=== PATIENT | female | born 1990 ===

== ENCOUNTER 2017-02-05 11:23 | Day surgery (SDC) | payer SELFPAY ==
[2017-01-24 12:10] VITALS: BMI 20.5
--- NOTE | 2017-02-05 12:41 | CP.SDSHP ---
Same Day Surgery H & P - History Proposed Procedure: EGD w/stent Pre-Op Diagnosis: Esophageal stenosis - Previous Medical/Surgical History Previous Surgical History: EGD w/dilation. Jtube - Allergies Allergies: Allergies No Known Allergies Allergy (Verified 02/05/17 12:06) - Physical Exam General Appearance: nl Mental Status: Alert & Oriented x3 Neuro: WNL Heart: WNL Lungs: WNL GI: WNL - {Optional Preform as Required} Abdomen: WNL - Impression Impression: esophageal stenosis Pt. Evaluated Today:Candidate for Anesthesia & Procedure: Yes - Date & Time Date: 02/05/17 Time: 12:41 Short Stay Discharge - Short Stay Discharge Admitting Diagnosis/Reason for Visit: ESOPHAGEAL STENOSIS Disposition: HOME/ ROUTINE
[2017-02-05 12:49] VITALS: RESP 16; O2SAT 100
[2017-02-05 14:11] VITALS: TEMP 97
--- NOTE | 2017-02-05 14:14 | RAD ---
HISTORY: esophageal stent placement COMPARISON: None available. TECHNIQUE: Chest, one view. FINDINGS: LUNGS: Superior most lung apices excluded from view. No focal consolidation. Please note that chest x-ray has limited sensitivity for the detection of pulmonary masses. PLEURA: No significant pleural effusion identified. No definite pneumothorax . CARDIOVASCULAR: The cardiomediastinal silhouette appears within normal limits of size. OSSEOUS STRUCTURES: No acute osseous abnormality identified. VISUALIZED UPPER ABDOMEN: Unremarkable. OTHER FINDINGS: Esophageal stent. Bilateral breast prosthesis. IMPRESSION: Esophageal stent.
[2017-02-05 15:22] VITALS: BP 119/73; PULSE 73
--- NOTE | 2017-02-06 12:46 | RAD ---
PROCEDURE: Fluoroscopy up to 1 hr. HISTORY: ESOPHOGEAL STRICTURE COMPARISON: None TECHNIQUE: Standard FINDINGS: Total fluoroscopic time (continuous mode) utilized during the procedure: 70.8 seconds. IMPRESSION: Less than 1 hr fluoroscopic time utilized during performance of the procedure.
== END 2017-02-05 15:40 | disposition home or self-care (01) ==
LOC: C.OPSURG 11:23 → C.ENDO 11:23
PROVIDERS: ATTEND Internal Medicine
DX: K22.2 Esophageal obstruction (principal)
CPT/HCPCS: 43249; 71010; 76000; 84703; C1726; C1874